=== PATIENT | male | born 1975 | race Caucasian/White ===

== ENCOUNTER 2019-08-15 18:17 | Emergency (ER) | payer SELFPAY ==
[~2019-08-15 18:17] MED LIST: Gadobenate Dimeglumine 529 MG/1 ML (20ML VIAL) ONE
[2019-08-15] MEDS ORDERED: HYDROcodone/Acetaminophen 5/325 mg Tablet ONE (18:50)
[2019-08-15] MEDS ORDERED: Morphine 4 MG/ML VIAL ONE ×2 (19:27→20:40)
--- NOTE | 2019-08-15 19:28 | RAD ---
Exam: 2 views lumbar spine HISTORY: Pain FINDINGS: 5 lumbar type vertebra. Moderate loss of disc space height at L2-L3. Mild/moderate loss of disc space at L1-L2. Vertebral body height is maintained. No fracture. Straightening of normal lumbar lordosis may be due to patient position or muscle spasm. IMPRESSION: No fracture. Degenerative changes as above. Further evaluation with additional imaging can be perform ed on a nonemergent basis
[2019-08-15 20:55] LABS: Anion Gap 11 mmol/L (10-20); BUN (Urea Nitrogen) 11 mg/dL (8.9-20.6); Calc. Creatinine Clearance 0 mL/min (70-130); Calcium 9.3 mg/dL (7.8-10.44); Carbon Dioxide 25 mmol/L (22-29); Chloride 105 mmol/L (98-107); Estimated GFR-MDRD 79; Glucose 88 mg/dL (70-105); Potassium 3.9 mmol/L (3.5-5.1); Sodium 137 mmol/L (136-145)
--- NOTE | 2019-08-15 21:46 | MRI ---
Exam: MRI lumbar spine with and without contrast HISTORY: Back surgery 3 years ago. Worsening back pain. Pain radiates down the left leg. COMPARISON: None FINDINGS: Appropriate T1 marrow signal intensity of the lumbar vertebra. Lumbar spine vertebral body height is maintained. No fracture. Type II Modic changes at L2-L3. No significant STIR hyperintensity to suggest vertebral body edema or ligamentous injury. Straightening of lumbar lordosis is presumed be positional Postcontrast images do not demonstrate any abnormal enhancement with regards to the vertebral bodies. No abnormal enhancement within the thecal sac including the cauda equina and conus medullaris Appropriate signal intensity of the paraspinal muscles Exophytic cyst emanating from the lower pole right kidney. Conus medullaris terminates at the inferior aspect of T12 T12-L1: Mild loss of disc space height. No significant central canal stenosis or significant neural f oraminal narrowing L1-L2: Moderate to severe loss of disc space height. Broad-based disc bulge with a small superior rig ht paracentral disc extrusion. Mild stenosis of the thecal sac. Mild bilateral neural foraminal narrowing L2-L3: Moderate loss of disc space height. Broad-based disc bulge abuts the thecal sac. There is a in ferior disc extrusion into the left subarticular zone. Mass effect and near complete obscuration the traversing left L3 nerve root. There is mild stenosis of the thecal sac. Mild right neural forami nal narrowing. Severe left neural foraminal narrowing due to disc material. L3-L4: Moderate to severe loss of disc space height. Disc desiccation. Broad based disc bulge, ligame ntum flavum thickening and facet hypertrophy result in mild central canal stenosis. Mild to moderate bilateral neural foraminal narrowing L4-L5: Desiccation with mild loss of disc space height. Broad-based disc bulge flattens the ventral t hecal sac. Mild central canal stenosis. Moderate right and moderate to severe left neural foramen due to disc material and facet hypertrophy. Small amount of fluid in both facet joints L5-S1: Adequate disc hydration. No significant central canal stenosis or significant neural foraminal narrowing IMPRESSION: 1. No pathologic enhancement 2. Degenerative changes of lumbar spine at L1-L2 as described above. 3. Degenerative disc disease at L2-L3 as described above. Narrowing of the left subarticular zone wit h partial obscuration the traversing left L3 nerve root. Severe left neural foraminal narrowing compromising the exiting left L2 nerve root. 3. Additional degenerative changes as described above. Transcribed Date/Time: 08/15/2019 10:06 PM
[2019-08-15] MEDS ORDERED: Ketorolac Tromethamine 30 MG/ML VIAL ONE (22:00)
== END 2019-08-16 00:11 | disposition home or self-care (01) ==
LOC: ERS 18:17
DX: M54.16 Radiculopathy, lumbar region (principal); Z87.891 Personal history of nicotine dependence
CPT/HCPCS: 36415; 72100; 72158; 80048; 85652; 96361; 96372; 96374; 96375; A9577; J1885; J2270

== ENCOUNTER 2019-10-27 11:24 | Inpatient (IN) | payer OTHER ==
[2019-10-27] MEDS ORDERED: Morphine 4 MG/ML VIAL ONE (13:19)
[2019-10-27] MEDS ORDERED: Ketorolac Tromethamine 30 MG/ML VIAL ONE (13:19)
[2019-10-27] MEDS ORDERED: Ondansetron ODT 4 MG TAB ONE (13:19)
--- NOTE | 2019-10-27 14:23 | RAD ---
XR Lumbar Spine 2 Or 3 View History: Fall. Injury. Comparison: Radiograph July 2019 Findings: No acute fracture or malalignment. Moderate narrowing of the L2/L3 disc space with large ci rcumferential disc osteophyte complex. Mild facet arthrosis lower lumbar spine. SI joints are unremarkable. Paraspinal soft tissues are unremarkable. Impression: No acute osseous abnormality.
[2019-10-27] MEDS ORDERED: HYDROmorphone 2 MG/ML VIAL IM SCH (15:30)
[2019-10-27 18:42] LABS: #Basophils 0.1 thou/uL (0.0-0.2); #Eosinphils 0.2 thou/uL (0.0-0.7); #Lymphocytes 2.7 thou/uL (1.20-3.40); #Monocytes 0.7 thou/uL (0.11-0.59); #Neutrophils 4.7 thou/uL (1.40-6.50); %Basophils 1.5 % (0.0-1.0); %Eosinophils 2.2 % (0.0-10.0); %Neutrophils 56.3 % (42.0-75.0); Hemoglobin 16.7 g/dL (14.0-18.0); Mean Corpuscular HGB CONC 33.6 g/dL (32.0-36.0); Mean Corpuscular Hemoglobin 30.1 pg (27.0-31.0); Mean Corpuscular Volume 89.7 fL (78.0-98.0); Mean Platelet Volume 7.6 fL (7.4-10.4); Platelet Count 287 thou/uL (130-400); RBC Distribution Width 11.4 % (11.5-14.5); Red Blood Cell (RBC) Count 5.55 mill/uL (4.70-6.10); White Blood Cell (WBC) Count 8.4 thou/uL (4.8-10.8)
--- NOTE | 2019-10-27 18:49 | CT ---
CT THORACIC SPINE: 10/27/2019 PROVIDED CLINICAL HISTORY: Back pain status post injury. FINDINGS: Thoracic alignment appears normal. There is no evidence for fracture. Vertebral body heights appear m aintained. Thoracic disk degenerative changes are seen. IMPRESSION: No evidence for fracture. POS: DIMITRI
[2019-10-27] MEDS ORDERED: Diazepam 10 MG/2 ML SYRINGE IVP SCH (19:00)
[2019-10-27 19:01] LABS: ALT (SGPT) 64 U/L (8-55); AST (SGOT) 35 U/L (5-34); Albumin 4.3 g/dL (3.5-5.0); Alcohol Less than 10 mg/dL (Less than 10); Alkaline Phosphatase 65 U/L (40-110); Anion Gap 12 mmol/L (10-20); BUN (Urea Nitrogen) 15 mg/dL (8.9-20.6); Bilirubin, Total 0.9 mg/dL (0.2-1.2); Calc. Creatinine Clearance 0 mL/min (70-130); Calcium 9.1 mg/dL (7.8-10.44); Carbon Dioxide 27 mmol/L (22-29); Chloride 105 mmol/L (98-107); Estimated GFR-MDRD 76; Glucose 93 mg/dL (70-105); Potassium 4.3 mmol/L (3.5-5.1); Protein, Total 7.3 g/dL (6.0-8.3); Sodium 140 mmol/L (136-145)
--- NOTE | 2019-10-27 19:02 | CT ---
CT LUMBAR SPINE WITHOUT CONTRAST: HISTORY: Chronic low back pain. The patient states he slipped and fell in the shower just prior to arrival and now has marked increase in low back pain. Numbness and tingling to the lower extremities, which is a chronic finding. COMPARISON: MRI lumbar spine on 08/15/2019. FINDINGS: The visualized retroperitoneal structures demonstrate a grossly normal nonenhanced CT appearance. The re is suture material seen in the region of the rectosigmoid junction. There are curvilinear calcific ations seen just anterior to the right common iliac artery. No fracture or subluxation is seen involving the lumbar spine. Vertebral body heights are within norm al limits. There are scattered degenerative changes throughout the lumbar spine with vacuum phenomeno n seen at the L1-L2 level. T12-L1: As noted on the prior exam, there is mild loss of intervertebral disk space height. There is no central canal or neural foraminal stenosis. L1-L2: There is loss of intervertebral disk height with endplate degenerative changes. There is a mil d disk osteophyte complex and minimal facet degenerative changes. There is effacement of the ventral aspect of the thecal sac with mild narrowing of the central spinal canal. The neural foramina appear patent. L2-L3: Again there is loss of intervertebral disk height. There is a broad-based disk osteophyte comp juana and facet hypertrophic changes. There is soft tissue density seen in the region of the left neura l foramen, which is shown to represent an inferior disk extrusion into the left subarticular zone on the prior exam with mass effect and near complete obscuration of the traversing left L3 nerve root on the prior MRI. This is an overall stable finding based on CT exam. There is slight mass effect of th e anterior aspect of the thecal sac. The right neural foramen at this level is patent. L3-L4: There is loss of intervertebral disk height. Facet hypertrophic changes are seen at this level . Mild disk osteophyte complex is present. There is flattening of the anterior aspect of the thecal s ac. Mild bilateral neural foraminal narrowing is present, slightly greater on the left. L4-L5: There is a broad-based disk osteophyte complex and facet hypertrophic changes. There is sugges tion of a right posterolateral disk bulge which may affect the exited right L4 nerve root laterally. There is moderate bilateral neural foraminal narrowing. L5-S1: The central spinal canal and neural foramina are patent. IMPRESSION: 1. Multilevel degenerative changes throughout the lumbar spine, not significantly progressed when com pared to the MRI from 08/15/2019, including severe left sided neural foraminal narrowing at the L2-L3 level obscuring the left L2 nerve root. There is also soft tissue density posterolaterally on the ri ght at the L4-L5 level which likely affects the exited right L4 nerve root and related to disc materi al laterally. 2. No acute fracture or subluxation involving the lumbar spine. POS: DARRELL
[2019-10-27 19:08] LABS: Amphetamine Not Detected (NotDetected); Barbiturates Screen Not Detected (NotDetected); Benzodiazepine Screen Not Detected (NotDetected); Cocaine Metabolite Screen Not Detected (NotDetected); Medtox Control Line Valid? VALID (VALID); Medtox Reader # READER 1; Methadone Not Detected (NotDetected); Methamphetamine Not Detected (NotDetected); Opiate Screen Detected (NotDetected); Oxycodone Screen Not Detected (NotDetected); Phencyclidine (PCP) Not Detected (NotDetected); THC/Cannabinoid Screen Detected (NotDetected); Tricyclic Screen Not Detected (NotDetected)
--- NOTE | 2019-10-27 19:20 | RAD ---
LEFT HIP TWO VIEWS: 10/27/2019 PROVIDED CLINICAL HISTORY: Pain status post injury. FINDINGS: No evidence for fracture or other acute osseous abnormality. If there is persistent clinical concern, conservative management and follow-up imaging are advised. IMPRESSION: As above. POS: DIMITRI
--- NOTE | 2019-10-27 19:21 | RAD ---
PELVIC RADIOGRAPH: 10/27/2019 PROVIDED CLINICAL HISTORY: Pain status post injury. FINDINGS: No evidence for fracture or other acute osseous abnormality. If there is persistent clinical concern, conservative management and follow-up imaging are advised. IMPRESSION: As above. POS: DIMITRI
[2019-10-27] MEDS ORDERED: Dextrose 50% Abboject 50 ML SYRINGE SLOW IVP PRN (19:39)
[2019-10-27] MEDS ORDERED: Morphine 4 MG/ML VIAL SLOW IVP PRN (19:39)
[2019-10-27] MEDS ORDERED: hydrALAZINE 20 MG/ML VIAL SLOW IVP PRN (19:39)
[2019-10-27] MEDS ORDERED: Dextrose 5% in Water 1,000 ML IV PRN (19:39)
[2019-10-27] MEDS ORDERED: Ondansetron PF 4 MG/2 ML Vial IVP PRN (19:39)
[2019-10-27] MEDS ORDERED: Morphine 2 MG/ML SYRINGE SLOW IVP PRN ×2 (19:39→19:48)
[2019-10-27] MEDS ORDERED: Ondansetron ODT 4 MG TAB PO PRN (19:39)
[2019-10-27] MEDS ORDERED: HYDROcodone/Acetaminophen 10/325 mg Tablet PO PRN (19:43)
[2019-10-27] MEDS ORDERED: Sodium Chloride 0.9% 1,000 ML IV SCH (19:45)
[2019-10-27 19:54] LABS: Magnesium 2.1 mg/dL (1.6-2.6); Phosphorus 4.4 mg/dL (2.3-4.7)
[2019-10-27] MEDS: Senokot S 8.6-50 MG TAB PO SCH (21:47)
[2019-10-27] MEDS: Ibuprofen 800 MG TAB PO SCH (21:48)
[2019-10-27] MEDS: Gabapentin 300 MG CAP PO SCH (21:48)
[2019-10-27] MEDS: HYDROcodone/Acetaminophen 10/325 mg Tablet PO PRN (21:48)
[2019-10-27] MEDS: Famotidine 20 MG TAB PO SCH (21:49)
[2019-10-27] MEDS ORDERED: Melatonin 3 MG TAB PO PRN (22:11)
[2019-10-27] MEDS: Morphine 4 MG/ML VIAL SLOW IVP PRN (22:33)
[2019-10-27] MEDS: Melatonin 3 MG TAB PO PRN (22:45)
--- NOTE | 2019-10-27 22:46 | CON ---
DATE OF CONSULTATION: HISTORY OF PRESENT ILLNESS: The patient is a 44-year-old male, recently evaluated in our office for increased back and left leg pain. He has a history of a prior left L2-L3 microdiskectomy. His updated MRI this fall in our office was notable for recurrent disk herniation at left L2-L3. We have planned for left L2-L3 diskectomy and fusion. However, the patient has been unable to pursue his surgery secondary to insurance issues and finances. The patient has been managing his pain with Tylenol 4 at home, but earlier today, he had a mechanical fall while getting out of the shower, landing on his back. Since that event, he has had significant increase in his back and left proximal leg pain. He has some ongoing numbness and tingling in the proximal anterior leg, this is unchanged. He is significantly limited in mobility secondary to his pain. He denies any changes in his bowel or bladder function. His pain was intractable during his ER admission. He was ultimately admitted by the Trauma Service for further management. Noncontrast CT of the thoracic and lumbar spines were done, which were negative for acute fracture or other acute injury. PAST MEDICAL HISTORY: The patient has a known history of lumbar degenerative disk disease, diverticulitis. PAST SURGICAL HISTORY: Surgery for diverticulitis, left L2-L3 microdiskectomy. SOCIAL HISTORY: The patient does not smoke, drink, or use any drugs. REVIEW OF SYSTEMS: Per HPI. PHYSICAL EXAMINATION: VITAL SIGNS: BP is 113/82, respiratory rate is 18, the patient is 99% on room air, pulse 89, temperature is 98.0. GENERAL: The patient appears uncomfortable, sitting in the bed. HEENT: Head, normocephalic and atraumatic. Eyes, PERRLA. Extraocular movements intact. ENT, oral mucosa is pink, intact, and moist. The patient has a normal voice. NECK: Nontender to palpation. Free active range of motion. No meningismus or nuchal rigidity. CARDIAC: Regular rate and rhythm. PULMONARY: Symmetric chest expansion. No evidence of dyspnea. MUSCULOSKELETAL: Upper extremities, the patient has free active range of motion of the upper extremities. No focal motor weakness. No reflex asymmetry. The patient's exam of the lower extremities is significantly limited secondary to pain. He has normal reflexive. His sensation is intact to light touch. He has severe pain with any manipulation of the lower extremities, left greater than right. NEUROLOGIC: A and O x4. His exam is significantly limited in the lower extremity secondary to pain and there appears to be some poor effort. ASSESSMENT AND PLAN: This is a 44-year-old male known to us for recent evaluation for recurrent left L2-L3 disk herniation, who presented for significantly worsening back and leg pain following a mechanical fall. He has been admitted by the Trauma Service for his intractable pain. We will plan to evaluate the patient further with a repeat of the MRI of the lumbar spine with and without contrast. I have discussed this plan with Dr. Tang and he is in agreement. Job ID: [id number]
--- NOTE | 2019-10-27 23:28 | HP ---
CONSULTS: Neurosurgery, Dr. Tang. CHIEF COMPLAINT: Back pain. HISTORY OF PRESENT ILLNESS: This is a 44-year-old gentleman with a past medical history of chronic back pain with previous lumbar spine surgery in 2012. The patient currently sees Dr. Tang in which he last saw him July of last year. The patient had a MRI and was told he needed surgical repair, but has not done so yet. The patient currently takes Tylenol No. 4 for his back pain. The patient states that since August, he has been only able to ambulate approximately 20-30 minutes at a time as he has increased pain. The patient has chronic numbness mainly to the left medial leg. The patient states that it has increased some. The patient reports that he slipped in the shower earlier this morning, causing him to land on his buttocks. The patient reported increased back pain after that. The patient denies hitting his head or losing any consciousness. The patient also denies any chest pain, shortness of breath or dizziness prior to falling. The patient was evaluated in the emergency room and multiple doses of pain medication were given, which included morphine, Toradol, Dilaudid, and Valium, in which the patient still continued to have severe back pain. Trauma Services were asked to admit the patient for observation and pain management. Neurosurgery, Dr. Tang was consulted. The patient does report having some constipation. Otherwise, the patient does not have any difficulty urinating and knows when he does have the urge to urinate. PAST MEDICAL HISTORY: Chronic back pain, Pablo's disease, and diverticulitis. FAMILY HISTORY: Significant for coronary artery disease. PAST SURGICAL HISTORY: Bowel resection and lumbar spine surgery in 2013. ALLERGIES: DENIES ANY DRUG ALLERGIES. SOCIAL HISTORY: Denies any alcohol use, denies any illicit drug use, the patient smoked for 15 years and stopped approximately 2 years ago. MEDICATIONS: Tylenol No. 4. REVIEW OF SYSTEMS: A 10-point review of systems is negative unless otherwise indicated in the above HPI. PHYSICAL EXAMINATION: VITAL SIGNS: Blood pressure 116/86, pulse 89, respirations 18, SpO2 of 99% on room air, and temperature 98.2. GENERAL: Middle-aged gentleman, well-appearing, obese, in moderate distress due to back pain. HEENT: Head is atraumatic and normocephalic. Pupils are equal, mucous membranes are moist. NECK: No cervical spine tenderness, trachea midline, normal range of motion of neck. RESPIRATORY: Equal chest rise and fall, bilateral breath sounds clear. No wheezing, rales, or rhonchi. CARDIAC: Regular rate, regular rhythm, no murmurs. ABDOMEN: Obese, soft, nontender, nondistended. EXTREMITIES: Moves all extremities, mild tenderness to left hip with palpation, distal pulses intact, decreased strength in lower extremities, likely pain related. The patient unable to bend his knees due to severe pain in his lumbar spine. Decreased sensation to bilateral lower extremities, which are chronic. NEUROLOGIC: Oriented to person, place, time, and event. LABORATORY DATA: WBC 8.4, RBC 5.55, hemoglobin 16.7, hematocrit 49.8, platelets 287. Sodium 140, potassium 4.3, chloride 105, BUN 15, creatinine 1.06, glucose 93, calcium 9.3, phosphorus 4.4, magnesium 2.1, total bilirubin 0.9, AST 35, ALT 64, alkaline phos 65, albumin 4.3. Urine drug strain screen positive for opioids and cannabinoids. Plasma alcohol less than 10. DIAGNOSTIC STUDIES: 1. Lumbar spine x-ray; impression, no acute osseous abnormality. 2. Lumbar spine CT; impression, multilevel degenerative changes throughout the lumbar spine, not significantly progressed when compared to MRI from 08/15/2019, including severe left-sided neuroforaminal narrowing at the L2-L3 leveling obscuring the left L2 nerve root. There is also soft tissue density posterolaterally on the right at the L4-L5 level, which likely affects the exiting right L4 nerve root. No acute fracture or subluxation of the lumbar spine. 3. Thoracic spine CT; no evidence of fracture. 4. Left hip x-ray; impression, no evidence for fracture or other acute osseous abnormality. 5. Pelvis x-ray; impression, no evidence for fracture or other acute osseous abnormalities. ASSESSMENT: 1. Status post fall from standing. 2. Back pain. 3. Moderate L2-L3 disk space narrowing, left large circumferential disk osteophyte complex. 4. Acute traumatic pain on chronic back pain. 5. Chronic paresthesia, worse on the left. 6. History of Pablo's disease, chronic back pain, and diverticulitis. PLAN: We will admit the patient to the OBS Unit for pain control. The patient will be placed on a regular diet as tolerated. Neurosurgery has evaluated the patient and no immediate surgical intervention in the next day. Neurosurgery will discuss surgical options tomorrow as the patient has previously been scheduled, but was unable to come up with the funding for the surgery. We will place the patient on a pain regimen and bowel regimen. The patient will be placed on mechanical DVT prophylaxis. The plan will be discussed with the attending after this dictation. Job ID: [id number]
[2019-10-27] MEDS: Acetaminophen 325 MG TAB PO SCH (23:32)
[2019-10-28] MEDS: Cyclobenzaprine 10 MG TAB PO PRN (00:28)
[2019-10-28] MEDS: Morphine 4 MG/ML VIAL SLOW IVP PRN ×3 (02:10→08:46)
[2019-10-28] MEDS: HYDROcodone/Acetaminophen 10/325 mg Tablet PO PRN ×2 (03:39→11:13)
[2019-10-28 04:26] VITALS: BMI 32.0
[2019-10-28] MEDS: Acetaminophen 325 MG TAB PO SCH ×4 (06:16→23:29)
[2019-10-28] MEDS: Ibuprofen 800 MG TAB PO SCH ×3 (06:21→22:38)
[2019-10-28] MEDS: Gabapentin 300 MG CAP PO SCH ×3 (08:47→20:42)
[2019-10-28] MEDS: Senokot S 8.6-50 MG TAB PO SCH ×2 (08:47→20:42)
[2019-10-28] MEDS: Famotidine 20 MG TAB PO SCH ×2 (08:47→20:43)
[2019-10-28] MEDS: Polyethylene Glycol 3350 17 GM Packet PO SCH (08:47)
--- NOTE | 2019-10-28 08:48 | MRI ---
MRI Lumbar Spine W WO Con History: Fall. Pain. Comparison: CT prior day. MRI August 15, 2019 Findings: No hydronephrosis. Visualized aortoiliac contour is nonaneurysmal. No retroperitoneal peritoneal adenopathy. Paraspinal musculature is symmetric. No marrow infiltrative process. No acute fracture of the lumbar spine. Conus medullaris terminates near the superior endplate of L1. Levels are as follows: L1-2: Broad-based posterior disc osteophyte complex. Minimal effacement of ventral CSF space with the spinal canal measuring approximately 1 mm. L2-3: Modic type II endplate changes. Moderate hypertrophic facet arthrosis. Large left lateral reces s and subforaminal disc osteophyte complex causing moderate to severe left neural foraminal narrowing with abutment of the left exiting and traversing nerve root. Right subforaminal and lateral recess disc osteophyte complex causes moderate neural foraminal narrowing. L3-4: Broad-based posterior disc osteophyte complex. No significant effacement of the ventral CSF spa ce. Moderate bilateral neural foraminal narrowing with abutment of the right exiting and both traversing nerve roots. L4-5: Mild degenerative disc space height loss. Circumferential disc osteophyte complex greatest in t he right lateral recess and subforaminal zone. Moderate to severe right neural foraminal narrowing causing abutment of the right exiting and traversing nerve roots. There is also abutment of the left traversing nerve root. L5-S1: Normal disc height and hydration. No neural foraminal or spinal canal narrowing. Impression: Moderate spondylosis as described with multilevel neural foramen abutment. No acute fract ure of the lumbar spine.
--- NOTE | 2019-10-28 11:48 | PRG ---
DATE OF SERVICE: 10/28/2019 SUBJECTIVE: The patient is seen and examined, I agree with Anju Finch's evaluation on 10/27/2019. The patient is a 44-year-old man, well known to me from office evaluation, who was found to have an L2-L3 far-lateral disk herniation and we have planned surgery. He was unable to pursue this for social economic reasons, but has had progressive symptoms, which were exacerbated by a fall yesterday. He is quite miserable with ongoing symptoms of lumbar radiculopathy. IMPRESSION AND PLAN: We will get a new lumbar MRI scan and assess the results. If the result shows similar pathology, we may need to proceed with surgery while in-house due to his intractable symptoms. Job ID: [id number]
[2019-10-28] MEDS ORDERED: diphenhydrAMINE 50 MG/ML VIAL IM/IV PRN (14:20)
[2019-10-28] MEDS ORDERED: Promethazine HCl 25 MG/ML VIAL IM PRN (14:20)
[2019-10-28] MEDS ORDERED: Zolpidem Tartrate 5 MG TAB PO PRN (14:20)
[2019-10-28] MEDS ORDERED: Ondansetron PF 4 MG/2 ML Vial IVP PRN (14:20)
[2019-10-28] MEDS ORDERED: Naloxone HCl 0.4 mg/ml Vial IV PRN (14:20)
[2019-10-28] MEDS ORDERED: diphenhydrAMINE 25 MG CAP PO PRN (14:20)
[2019-10-28] MEDS: HYDROmorphone 10 mg/100 ml CADD IV PRN (15:15)
[2019-10-28] MEDS: Dexamethasone 4 mg/ml Vial SLOW IVP SCH ×2 (15:26→22:38)
[2019-10-28] MEDS ORDERED: Magnevist 469MG/ML 20 ML VIAL ONE (16:35)
[2019-10-28] MEDS: Melatonin 3 MG TAB PO PRN (23:29)
[2019-10-29] MEDS: Cyclobenzaprine 10 MG TAB PO PRN ×2 (04:16→14:26)
[2019-10-29] MEDS: Acetaminophen 325 MG TAB PO SCH ×4 (05:26→23:03)
[2019-10-29] MEDS: Dexamethasone 4 mg/ml Vial SLOW IVP SCH ×3 (05:26→23:03)
[2019-10-29] MEDS: Ibuprofen 800 MG TAB PO SCH ×3 (05:27→23:11)
--- NOTE | 2019-10-29 07:48 | PRG ---
DATE OF SERVICE: 10/29/2019 SUBJECTIVE: The patient reports that he is feeling much better after the addition of the POT PUNCHER for pain and Decadron q. 8 . He is moving his legs better in the bed. He has still not ambulated much secondary to his pain. He continues to be weak in the left proximal leg, but some of this may be limited by pain. Denies any bowel or bladder issues. Vitals have been stable. He has been afebrile. I reviewed his MRI from yesterday which shows persistent left far lateral disk herniation at L2- L3. He also has multilevel degenerative disk disease at several of the other levels. OBJECTIVE: On exam this morning he is awake, alert, no acute distress. He has free active range of motion of the upper extremities with no weakness in the lower extremities. He is somewhat weak in the left proximal leg. He is able to pull his knees up and push down. He is able to plantar and dorsiflex bilateral feet. Lower extremity reflexes are normoreflexive. His sensation is intact to light touch. PLAN: We will continue to work on pain control and mobilize as he is able. I discussed with Dr. aTng and will plan for Left l2-L3 diskectomy and fusion for sunday. Job ID: [id number] [facility]
--- NOTE | 2019-10-29 08:02 | PRG ---
DATE OF SERVICE: 10/28/2019 SUBJECTIVE: Mr. Rosales is a 44-year-old male, coming to the Trauma Service after reported fall at home. He sustained back pain and with no lower extremity neurology deficits . The patient also has a history of chronic back pain and left leg pain in which patient was recommended spine surgery with Dr. Tang, but the patient did not have ability to conduct surgery due to financial reasons. Currently, the patient is lying down. Currently, the patient reports his pain is still the same. He developed no new neurology deficits. He tolerated with his regular diet. He developed no fever or shortness of breath. OBJECTIVE: GENERAL: Currently, the patient is lying in bed comfortable with no acute respiratory distress. The patient is alert and awake. GCS 15. VITAL SIGNS: Temperature 98.2, heart rate 84, respiratory rate 20, O2 saturation 96% on room air, and blood pressure 117/80. LUNGS: Clear bilaterally. HEART: Regular rate and rhythm. ABDOMEN: Soft, nondistended. EXTREMITIES: Neurovascularly intact x4. NEUROLOGIC: No focal neurology deficits. IMAGING DATA: Lumbar spine MRI shows moderate spondylosis as described with multiple level neural foramen abutment.. No acute fracture of the lumbar spine noted. ASSESSMENT: 1. Status post ground level fall with no acute spine injury. 2. Chronic spondylosis stenosis with chronic back pain. PLAN: Dr. Tang saw the patient, Dr. Tang recommended another lumbar MRI , and Dr. Tang consider to take the patient to OR for lumbar surgery due to consistently symptomatic. Per Dr. Meza, due to patient not sustaining any acute injury from the fall, the patient is not a trauma patient. Trauma Service will sign off from now, and Neurosurgery, Dr. Tang, will resume care for the patient from now on. The patient was discussed with Dr. Meza on table round this morning. Job ID: [id number] [facility]
[2019-10-29] MEDS: Gabapentin 300 MG CAP PO SCH ×3 (08:53→23:02)
[2019-10-29] MEDS: Polyethylene Glycol 3350 17 GM Packet PO SCH (08:54)
[2019-10-29] MEDS: Famotidine 20 MG TAB PO SCH ×2 (08:54→23:03)
[2019-10-29] MEDS: Senokot S 8.6-50 MG TAB PO SCH ×2 (08:54→23:04)
--- NOTE | 2019-10-29 09:48 | PRG ---
DATE OF SERVICE: 10/29/2019 The patient is seen and examined. 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 His MRI scan again reveals the left L2-L3 foraminal disease consistent with his ongoing symptoms. This was the main structural lesion. We again discussed the indications, risks, benefits, and alternatives of the left L2-L3 decompression and fusion. This was similar to our previous discussion in the office this fall. He expressed understanding. All questions were answered. He wished to proceed. We will work on the surgical scheduling, but given his intractable pain, he is unlikely to be able to be discharged to the outpatient setting until surgery is performed. Job ID: [id number]
[2019-10-29] MEDS: chlorproMAZINE HCl 25 MG TAB PO PRN ×2 (16:25→23:15)
[2019-10-29] MEDS: HYDROmorphone 10 mg/100 ml CADD IV PRN (21:05)
[2019-10-29] MEDS: Melatonin 3 MG TAB PO PRN (23:11)
[2019-10-30] MEDS: Acetaminophen 325 MG TAB PO SCH ×3 (04:50→19:32)
[2019-10-30] MEDS: Cyclobenzaprine 10 MG TAB PO PRN (04:50)
[2019-10-30] MEDS: Dexamethasone 4 mg/ml Vial SLOW IVP SCH ×3 (04:50→21:17)
[2019-10-30] MEDS: Ibuprofen 800 MG TAB PO SCH ×3 (06:04→21:22)
--- NOTE | 2019-10-30 06:06 | PRG ---
DATE OF SERVICE: 10/30/2019 SUBJECTIVE: The patient had acute exacerbation of his back and left leg pain after trying to have a bowel movement. He is now resting in the bed and he is starting to feel better. 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 He did rest a little bit better with increase in the melatonin last night. His hiccups are also resolved status post addition of Thorazine. OBJECTIVE: GENERAL: On exam this morning, the patient is awake, alert, resting comfortably. MUSCULOSKELETAL: His exam is still quite limited in the lower extremity secondary to pain. He is somewhat hyperreflexive in the lower extremities. Sensation is intact to light touch. PLAN: We will continue to manage his pain and mobilize as able with the assistance of Physical Therapy. We will plan for left L2, L3 diskectomy and fusion, likely for Sunday. Job ID: [id number]
[2019-10-30] MEDS: Senokot S 8.6-50 MG TAB PO SCH ×2 (09:03→21:00)
[2019-10-30] MEDS: Gabapentin 300 MG CAP PO SCH ×3 (09:04→20:03)
[2019-10-30] MEDS: Polyethylene Glycol 3350 17 GM Packet PO SCH (09:04)
[2019-10-30] MEDS: Famotidine 20 MG TAB PO SCH ×2 (09:04→20:03)
[2019-10-30] MEDS: chlorproMAZINE HCl 25 MG TAB PO PRN ×2 (11:08→20:03)
[2019-10-30] MEDS ORDERED: Lidocaine 2% Viscous Solution 20 ML, Aluminum & Magnesium Hydroxide 30 ML, Donnatal Eli... SSW SCH (12:30)
[2019-10-31] MEDS: Acetaminophen 325 MG TAB PO SCH ×5 (00:58→23:39)
[2019-10-31] MEDS: HYDROmorphone 10 mg/100 ml CADD IV PRN (02:11)
[2019-10-31] MEDS: Cyclobenzaprine 10 MG TAB PO PRN (05:45)
[2019-10-31] MEDS: Dexamethasone 4 mg/ml Vial SLOW IVP SCH ×3 (05:45→22:18)
[2019-10-31] MEDS: Ibuprofen 800 MG TAB PO SCH ×3 (05:51→20:03)
[2019-10-31] MEDS: Polyethylene Glycol 3350 17 GM Packet PO SCH (08:38)
[2019-10-31] MEDS: chlorproMAZINE HCl 25 MG TAB PO PRN ×3 (08:39→23:39)
[2019-10-31] MEDS: Gabapentin 300 MG CAP PO SCH ×3 (08:39→20:00)
[2019-10-31] MEDS: Famotidine 20 MG TAB PO SCH ×2 (08:39→20:00)
[2019-10-31] MEDS: Senokot S 8.6-50 MG TAB PO SCH ×2 (08:39→20:01)
--- NOTE | 2019-10-31 10:33 | PRG ---
DATE OF SERVICE: 10/31/2019 SUBJECTIVE: The patient remained stable on the Med/Surg floor. He continues to have significant back and left leg pain. He continues to complain dysesthesias in the left leg. He feels much better when he is still, but any time he tried to get up or move around. He has severe pain. He is currently being managed on a DRIED FRUIT WASHER, which has helped significantly. He also had some issues with hiccups, but this resolved after treatment of Thorazine. OBJECTIVE: GENERAL: On exam, the patient is sitting comfortably in the bed, in no acute distress. NEUROLOGIC: He has sensation intact to light touch. He is hyperreflexive in the lower extremities. He is able to plantar and does dorsiflex bilaterally. He is weak over the left proximal legs and very limited by pain. PLAN: We will continue to control his pain and plan for left L2-L3 diskectomy and fusion. Job ID: [id number]
--- NOTE | 2019-10-31 17:59 | PRG ---
DATE OF SERVICE: 10/31/2019 Mr. Rosales continues to have improved pain control on his MEDICAL INSTRUMENT CABLE FABRICATOR. Surgery is planned for Sunday. We will keep him inpatient until that period due to the intractable pain and need for intravenous narcotics. All questions were answered. Job ID: [id number]
[2019-10-31] MEDS: Melatonin 3 MG TAB PO PRN (23:40)
[2019-11-01] MEDS: Dexamethasone 4 mg/ml Vial SLOW IVP SCH ×3 (06:19→22:43)
[2019-11-01] MEDS: Ibuprofen 800 MG TAB PO SCH ×3 (06:19→22:45)
[2019-11-01] MEDS: Acetaminophen 325 MG TAB PO SCH ×4 (06:20→23:19)
[2019-11-01] MEDS: HYDROmorphone 10 mg/100 ml CADD IV PRN (07:42)
[2019-11-01] MEDS: Polyethylene Glycol 3350 17 GM Packet PO SCH (08:21)
[2019-11-01] MEDS: Senokot S 8.6-50 MG TAB PO SCH ×2 (08:22→22:45)
[2019-11-01] MEDS: Gabapentin 300 MG CAP PO SCH ×3 (08:22→22:40)
[2019-11-01] MEDS: Famotidine 20 MG TAB PO SCH ×2 (08:22→22:45)
--- NOTE | 2019-11-01 08:44 | PRG ---
DATE OF SERVICE: 11/01/2019 The patient continues to improve with regard to pain control on his SPACE CONTROL SUPERVISOR. He mobilized yesterday with Physical Therapy and walked short distance to the hallway. Pain is usually exacerbated by mobilization. On exam this morning, the patient is lying comfortable, in no acute distress. He remains weak in the left proximal leg. Sensation is intact to light touch. He is slightly hyporeflexive throughout. Plan is for left L2-L3 diskectomy and fusion on Sunday. All preop orders have been done. Job ID: [id number] MTDD
[2019-11-01] MEDS: chlorproMAZINE HCl 25 MG TAB PO PRN ×2 (18:17→23:19)
[2019-11-01] MEDS: Melatonin 3 MG TAB PO PRN (22:42)
[2019-11-01] MEDS: Cyclobenzaprine 10 MG TAB PO PRN (22:43)
[2019-11-02] MEDS: Dexamethasone 4 mg/ml Vial SLOW IVP SCH ×4 (06:13→23:14)
[2019-11-02] MEDS: Ibuprofen 800 MG TAB PO SCH ×3 (06:13→22:28)
[2019-11-02] MEDS: Acetaminophen 325 MG TAB PO SCH ×4 (06:13→23:14)
[2019-11-02] MEDS: Cyclobenzaprine 10 MG TAB PO PRN (06:14)
--- NOTE | 2019-11-02 08:49 | PRG ---
DATE OF SERVICE: 11/02/2019 The patient is a 44-year-old male, who is known for us for recent exasperation of back and left leg pain, who has a large left-sided L2-L3 disk herniation and stenosis. We have plans for left L2 through L3 diskectomy and fusion tomorrow. He has been made n.p.o. at midnight and preop orders have been done. He is complaining of increased left leg burning pain this morning. He is currently on a Dilaudid PHP WEBSITE DEVELOPER as well as Decadron 4 q.8, and p.r.n. Flexeril. He is also on gabapentin 300 t.i.d. On exam this morning, he appears to be in no acute distress. He has a positive left straight leg raise and ongoing weakness in the left proximal leg. We will plan to increase his gabapentin to 600 t.i.d. I have also increased his Decadron to 4 mg q.6 h. Will ask anethesias to make PHP WEBSITE DEVELOPER adjustements if able. N.p.o. at midnight. Plan is for surgery tomorrow. Job ID: [id number] MTDD
[2019-11-02] MEDS: Gabapentin 300 MG CAP PO SCH ×3 (09:24→20:36)
[2019-11-02] MEDS: chlorproMAZINE HCl 25 MG TAB PO PRN ×2 (09:24→17:39)
[2019-11-02] MEDS: Polyethylene Glycol 3350 17 GM Packet PO SCH (09:25)
[2019-11-02] MEDS: Famotidine 20 MG TAB PO SCH ×2 (09:25→20:36)
[2019-11-02] MEDS: Senokot S 8.6-50 MG TAB PO SCH ×2 (09:25→20:35)
[2019-11-02] MEDS: HYDROmorphone 10 mg/100 ml CADD IV PRN (11:12)
[2019-11-02] MEDS: Melatonin 3 MG TAB PO PRN (23:14)
[2019-11-03] MEDS: Ibuprofen 800 MG TAB PO SCH ×3 (05:12→20:10)
[2019-11-03] MEDS: Acetaminophen 325 MG TAB PO SCH ×4 (05:12→23:12)
[2019-11-03] MEDS: Dexamethasone 4 mg/ml Vial SLOW IVP SCH ×4 (05:12→23:12)
[2019-11-03] MEDS: Famotidine 20 MG TAB PO SCH ×2 (07:16→20:10)
[2019-11-03] MEDS: Polyethylene Glycol 3350 17 GM Packet PO SCH (07:17)
[2019-11-03] MEDS: Senokot S 8.6-50 MG TAB PO SCH ×2 (07:17→20:10)
[2019-11-03] MEDS: Gabapentin 300 MG CAP PO SCH ×3 (07:17→20:10)
[2019-11-03] MEDS ORDERED: Fentanyl 100 MCG/2 ML VIAL ONE ×4 (08:40→11:31)
[2019-11-03] MEDS ORDERED: Famotidine/PF 20 mg/2ml Vial ONE (09:10)
[2019-11-03] MEDS ORDERED: CEFAZOLIN 2 GM in Premix Bag 1 BAG IVPB SCH (10:00)
[2019-11-03] MEDS ORDERED: Ondansetron HCl/PF 4 MG/2 ML Vial IVP PRN (11:00)
[2019-11-03] MEDS ORDERED: Meperidine HCl/PF 25 MG/ML VIAL SLOW IVP PRN (11:00)
[2019-11-03] MEDS ORDERED: Promethazine HCl 25 MG/ML VIAL SLOW IVP PRN (11:00)
[2019-11-03] MEDS ORDERED: Promethazine HCl 25 MG/ML VIAL IM PRN (11:00)
[2019-11-03] MEDS ORDERED: PACU-Morphine 4MG/ML VIAL SLOW IVP PRN (11:00)
--- NOTE | 2019-11-03 11:20 | OP ---
DATE OF PROCEDURE: 11/03/2019 PHARMACY AIDE: Anju Finch PA-C PROCEDURES PERFORMED: Left L2-L3 laminectomy, facetectomy, foraminotomy, diskectomy, interbody arthrodesis, posterolateral arthrodesis, and pedicle screw instrumentation left L2-L3. DESCRIPTION OF PROCEDURE: The patient was brought to the operating room and intubated. He was rolled in a prone position on gel-filled chest rolls. The previous incision was reopened and the L2-L3 level was identified and confirmed by x-ray. We found the expected scar tissue in the left L2-L3 neuroforamen. After complete exposure, we performed left L2-L3 facetectomy and foraminotomy. We incised the L2-L3 disk and removed in its entirety. We explored the left L2 nerve root and of course, this was encased with scar. We removed any disk material from beneath the left L2 nerve root and a complete decompression of left L2 was achieved. The L2-L3 disk was removed in its entirety for the purpose of interbody arthrodesis, but the disk space was too small to place an intervertebral device. We next placed pedicle screws at left L2 and left L3 using lateral fluoroscopic guidance and the position was confirmed by x-ray. Vinh was secured between the screws, connected by nuts, which were final tightened. Next, the wound was extensively irrigated. MAC hemostasis was secured. A combination of demineralized bone matrix and local morselized autograft were laid over the right lamina and posterolateral surfaces for the purpose of arthrodesis. Vancomycin powder was applied and the wound was then closed in anatomic layers. Job ID: [id number]
[2019-11-03] MEDS ORDERED: HYDROmorphone 2 MG/ML VIAL ONE ×2 (11:39→12:24)
[2019-11-03] MEDS ORDERED: Glycopyrrolate 0.2 MG/ML 5 ML SYRINGE ONE (14:27)
[2019-11-03] MEDS ORDERED: Rocuronium Bromide 10 MG/ML (10ML VIAL) ONE (14:27)
[2019-11-03] MEDS ORDERED: Dexamethasone 20 MG/5 ML VIAL ONE (14:27)
[2019-11-03] MEDS ORDERED: PROPOFOL 200 MG/20 ML VIAL ONE (14:27)
[2019-11-03] MEDS ORDERED: Lidocaine 1% PF 5 ML VIAL ONE (14:27)
[2019-11-03] MEDS ORDERED: Metoclopramide HCl 10 MG/2 ML VIAL ONE (14:27)
[2019-11-03] MEDS ORDERED: Ondansetron PF 4 MG/2 ML Vial ONE (14:27)
[2019-11-03] MEDS ORDERED: Ketorolac Tromethamine 30 MG/ML VIAL ONE (14:27)
[2019-11-03] MEDS: Cyclobenzaprine 10 MG TAB PO PRN ×2 (15:28→20:14)
[2019-11-03] MEDS: chlorproMAZINE HCl 25 MG TAB PO PRN (20:10)
[2019-11-03] MEDS: Melatonin 3 MG TAB PO PRN (23:12)
[2019-11-04] MEDS: Acetaminophen 325 MG TAB PO SCH ×4 (05:20→22:50)
[2019-11-04] MEDS: Dexamethasone 4 mg/ml Vial SLOW IVP SCH ×3 (05:21→20:22)
[2019-11-04] MEDS: Ibuprofen 800 MG TAB PO SCH ×3 (05:23→20:22)
--- NOTE | 2019-11-04 06:28 | PRG ---
DATE OF SERVICE: 11/04/2019 SUBJECTIVE: The patient is postoperative day #1, status post a left L2-L3 diskectomy and fusion. Following the surgery, he had significant pain control issues in PACU and was resistant to moving even his arms and legs due to severe pain. I had initially planned on additional imaging with the MRI; however, with improved pain control, the patient is now moving much better. OBJECTIVE: On exam this morning, the patient is awake, alert, in no acute distress. He is moving the upper extremities easily without difficulty. He is slowly moving the legs and able to lift them off the bed and pull his knees up to the chest, can plantar and dorsiflex without difficulty. Incision is clean, dry, and intact. ASSESSMENT AND PLAN: We will continue to work on pain control and mobilize with the assistance of Physical Therapy and hoping for home in the next 1 to 2 days if the patient continues to improve. Job ID: [id number]
[2019-11-04] MEDS: chlorproMAZINE HCl 25 MG TAB PO PRN ×3 (07:08→20:26)
[2019-11-04] MEDS: Cyclobenzaprine 10 MG TAB PO PRN ×3 (07:08→20:26)
[2019-11-04] MEDS: HYDROmorphone 10 mg/100 ml CADD IV PRN (08:00)
[2019-11-04] MEDS: Gabapentin 300 MG CAP PO SCH ×3 (08:19→20:21)
[2019-11-04] MEDS: Senokot S 8.6-50 MG TAB PO SCH ×2 (08:20→20:20)
[2019-11-04] MEDS: Polyethylene Glycol 3350 17 GM Packet PO SCH (08:20)
[2019-11-04] MEDS: Famotidine 20 MG TAB PO SCH ×2 (08:20→20:21)
[2019-11-04] MEDS: Melatonin 3 MG TAB PO PRN (22:50)
[2019-11-05] MEDS ORDERED: HYDROcodone/Acetaminophen 10/325 mg Tablet PO PRN (05:05)
[2019-11-05] MEDS: Acetaminophen 325 MG TAB PO SCH ×4 (05:18→23:49)
[2019-11-05] MEDS: Dexamethasone 4 mg/ml Vial SLOW IVP SCH ×4 (05:19→21:59)
[2019-11-05] MEDS: Ibuprofen 800 MG TAB PO SCH ×3 (05:19→22:11)
--- NOTE | 2019-11-05 05:34 | PRG ---
DATE OF SERVICE: 11/05/2019 SUBJECTIVE: The patient is postoperative day #2, status post a left L2-L3 diskectomy and fusion. His pain is somewhat improved today, and he is pushing his MATERIALS BRANCH CHIEF less frequently. He is moving his legs better in the bed, but has not yet ambulated. He was able to sit on the side of the bed yesterday with PT for a short period. Denies any bowel or bladder issues. OBJECTIVE: On exam, the patient appears to be resting comfortably. No acute distress. He has good strength in the upper extremities, 5/5. In the lower extremities, he is somewhat resistant to move them, but appears to have 4-/5 strength throughout. He has normal reflexive. Sensation is intact to light touch. PLAN: We will continue to work on mobilizing with the assistance of Physical Therapy. I will order the patient a walker for assistance with this. We will also work on weaning the patient from the MATERIALS BRANCH CHIEF today, and I have ordered brenna Nash instead. Job ID: [id number]
[2019-11-05] MEDS: Polyethylene Glycol 3350 17 GM Packet PO SCH (09:01)
[2019-11-05] MEDS: Senokot S 8.6-50 MG TAB PO SCH ×2 (09:01→20:41)
[2019-11-05] MEDS: Famotidine 20 MG TAB PO SCH ×2 (09:02→20:41)
[2019-11-05] MEDS: Gabapentin 300 MG CAP PO SCH ×3 (09:02→20:41)
[2019-11-05] MEDS: HYDROcodone/Acetaminophen 10/325 mg Tablet PO PRN ×3 (14:25→22:50)
[2019-11-05] MEDS: Mag-Al 1200 mg/1200 mg/30 ML UDCUP PO PRN (16:14)
[2019-11-05] MEDS: Cyclobenzaprine 10 MG TAB PO PRN (22:50)
[2019-11-05] MEDS: Melatonin 3 MG TAB PO PRN (22:52)
[2019-11-06] MEDS: HYDROcodone/Acetaminophen 10/325 mg Tablet PO PRN ×4 (04:00→20:07)
[2019-11-06] MEDS: Acetaminophen 325 MG TAB PO SCH ×4 (05:48→23:57)
[2019-11-06] MEDS: Ibuprofen 800 MG TAB PO SCH ×3 (05:48→23:25)
[2019-11-06] MEDS: Dexamethasone 4 mg/ml Vial SLOW IVP SCH (05:50)
[2019-11-06] MEDS: Famotidine 20 MG TAB PO SCH ×2 (08:24→20:09)
[2019-11-06] MEDS: Gabapentin 300 MG CAP PO SCH ×3 (08:24→20:07)
[2019-11-06] MEDS: Dexamethasone 1 MG TAB PO SCH ×3 (08:24→20:07)
--- NOTE | 2019-11-06 08:25 | PRG ---
DATE OF SERVICE: 11/06/2019 SUBJECTIVE: The patient is now postoperative day #3, status post left L2-L3 diskectomy and fusion. His pain has significantly improved as well as mobility, and his SPONGE PACKER was discontinued yesterday. He is mobilizing slowly with the assistance of Physical Therapy. Case Management has arranged for him to receive a limited amount of home health and PT visits at discharge eventually. We have been trending his Decadron down and is currently at 2 mg t.i.d. OBJECTIVE: On exam, the patient is awake, alert, in no acute distress. He has free active range of motion of all extremities. No focal motor weakness. Sensation is intact to light touch. Incision is clean, dry, and intact. PLAN: We will continue to trend his steroids downward, and I have changed him to 1 mg p.o. t.i.d. We will continue to work with Physical Therapy. They will begin working on stairs since the patient does have stairs at his apartment. I will also check to see if he is able to get a walker with Case Management. I anticipate home in the next few days. Job ID: [id number]
[2019-11-06] MEDS: Senokot S 8.6-50 MG TAB PO SCH ×2 (08:44→20:09)
[2019-11-06] MEDS: Polyethylene Glycol 3350 17 GM Packet PO SCH (08:44)
--- NOTE | 2019-11-06 09:24 | PRG ---
DATE OF SERVICE: 11/06/2019 Mr. Rosales continues to improve. He is ambulating with physical therapy and working on stairs. His pain control is adequate. Anticipate dismissal tomorrow. Job ID: [id number]
[2019-11-06] MEDS: chlorproMAZINE HCl 25 MG TAB PO PRN (09:39)
[2019-11-06] MEDS: Cyclobenzaprine 10 MG TAB PO PRN (09:41)
[2019-11-06] MEDS: Mag-Al 1200 mg/1200 mg/30 ML UDCUP PO PRN (11:41)
--- NOTE | 2019-11-06 17:38 | RAD ---
Exam:2 views left hand HISTORY: Fourth digit numbness. COMPARISON: None FINDINGS: Preserved joint spaces. No erosive or destructive changes. No fracture. IMPRESSION: Unremarkable 2 views left hand.
[2019-11-06] MEDS: Melatonin 3 MG TAB PO PRN (23:57)
[2019-11-07] MEDS: HYDROcodone/Acetaminophen 10/325 mg Tablet PO PRN ×2 (07:53→13:28)
[2019-11-07] MEDS: Acetaminophen 325 MG TAB PO SCH ×2 (07:56→13:31)
[2019-11-07] MEDS: Ibuprofen 800 MG TAB PO SCH (07:56)
--- NOTE | 2019-11-07 09:23 | DIS ---
DATE OF ADMISSION: 10/27/2019 DATE OF DISCHARGE: 11/07/2019 HOSPITAL COURSE: The patient is a 44-year-old male, who presented to the ER on 10/27/2019 for acute exacerbation of low back and left leg pain. MRI was performed, which showed a recurrent left-sided L2-L3 disk herniation. The patient had a history of prior microdiskectomy at this area. The patient was admitted to the Med/Surg floor, where he required OPERATIONS PROCESSOR for pain control. He underwent a left-sided L2-L3 diskectomy and fusion on 11/03/2019. Following the surgery, he was transitioned back to the Med/Surg floor, where his pain significantly improved. He was tolerating a regular diet and voiding appropriately. He worked with Physical Therapy and Occupational Therapy and had significant improvement in his mobility. He was provided with a walker and I arranged case management to set up home health as well as physical therapy visits. The patient was provided with scripts for [place], Zanaflex, Keflex, and gabapentin at discharge. I discussed home care precautions. We will follow up with the patient in 2 weeks. Job ID: [id number]
[2019-11-07] MEDS: Gabapentin 300 MG CAP PO SCH (10:12)
[2019-11-07] MEDS: Dexamethasone 1 MG TAB PO SCH ×2 (10:12→13:28)
[2019-11-07] MEDS: Famotidine 20 MG TAB PO SCH (10:12)
[2019-11-07] MEDS: Senokot S 8.6-50 MG TAB PO SCH (10:16)
[2019-11-07] MEDS: Polyethylene Glycol 3350 17 GM Packet PO SCH (10:16)
[2019-11-07 10:32] VITALS: BP 136/87; TEMP 98.4
== END 2019-11-07 13:53 | disposition home health service (06) | DRG 460 ==
LOC: ERS 11:24 → OBSVTOIN 19:28 → SURG A 19:28
PROVIDERS: ADMIT Surgery; ATTEND Surgery
PROC: 0SG0071 Fusion of Lumbar Vertebral Joint with Autologous Tissue Substitute, Posterior Approach, Posterior Column, Open Approach (ICD-10-PCS; principal; 2019-11-03)
PROC: 0ST20ZZ Resection of Lumbar Vertebral Disc, Open Approach (ICD-10-PCS; 2019-11-03)
PROC: 01NB0ZZ Release Lumbar Nerve, Open Approach (ICD-10-PCS; 2019-11-03)
DX: M48.061 Spinal stenosis, lumbar region without neurogenic claudication (principal); M47.816 Spondylosis without myelopathy or radiculopathy, lumbar region; M51.26 Other intervertebral disc displacement, lumbar region; M51.36 Other intervertebral disc degeneration, lumbar region; M79.605 Pain in left leg; K22.70 Barrett's esophagus without dysplasia; M25.78 Osteophyte, vertebrae; R20.2 Paresthesia of skin; Z87.891 Personal history of nicotine dependence; Z79.899 Other long term (current) drug therapy
CPT/HCPCS: 72100; 72128; 72131; 72158; 72170; 76000; 80053; 80306; 80307; 83735; 84100; 85025; 96372; 96374; A9579; C1713; C1768; J0690; J1100; J1170; J1885; J2001; J2270; J2405; J2704; J2765; J3010; J3360; J3370; J3490; J8540; Q0161; Q0162; S0028

== ENCOUNTER 2019-11-20 08:30 | Outpatient (CLI) | payer OTHER ==
--- NOTE | 2019-11-20 10:00 | RAD ---
LUMBAR SPINE 2 VIEWS: HISTORY: Lumbar radiculopathy. Postop followup. COMPARISON: 10/27/2019. FINDINGS: Postoperative changes are apparent. Posterior skin jorge. Pedicle screws are seen on the left at the L2-3 level. Vertebral body height and alignment is maintained. Degenerative changes are again n oted. IMPRESSION: Postoperative and degenerative changes are noted with no acute interval change. POS: [facility]
== END 2019-11-20 08:31 | disposition home or self-care (01) ==
LOC: TBSIIMAG 08:30
PROVIDERS: ATTEND Neurological Surgery
DX: M47.26 Other spondylosis with radiculopathy, lumbar region (principal); Z98.890 Other specified postprocedural states
CPT/HCPCS: 72100